=== PATIENT | female | born 1960 | race Caucasian/White ===

== ENCOUNTER 2016-09-12 09:49 | Day surgery (SDC) | payer OTHER, MEDICARE ==
[2016-09-08 13:26] VITALS: BMI 27.4
[~2016-09-12 09:49] MED LIST: LACTATED RINGERS 1,000 ML IV SCH
[2016-09-12 10:31] VITALS: RESP 16; TEMP 97.1
[2016-09-12] MEDS ORDERED: LIDOCAINE 1% 20 ML VIAL (10MG/ML) FOR IV START INTRADERMA ONE (10:35)
[2016-09-12] MEDS ORDERED: ONDANSETRON 4 MG/2 ML VIAL IVP STA (10:52)
[2016-09-12] MEDS ORDERED: DEXAMETHASONE SOD PHOSPHATE 10 MG/ML 1 ML VIAL IV ONE (10:52)
[2016-09-12] MEDS ORDERED: LIDOCAINE 1% INJ 10MG/ML (20 ML MDV) ONE (12:01)
[2016-09-12] MEDS ORDERED: PROPOFOL 10 MG/ML 20 ML VIAL IV ONE (12:01)
--- NOTE | 2016-09-12 12:19 | P.GSHP ---
History of Present Illness H&P Date: 09/12/16 Chief Complaint: GERD, screening Patient today for upper and lower endoscopy. Denies any bowel related complaints. Chronic reflux. She does have a history of IBS. Denies rectal bleeding or melena. No family history of colon cancer or polyps. Past Medical History Past Medical History: COPD, Fibromyalgia, GERD/Reflux, Osteoarthritis (OA) Additional Past Medical History / Comment(s): occasional edema, hx of hiatal hernia, IBS, ABDOMINAL BLOATING, CHRONIC SCIATICA, DDD History of Any Multi-Drug Resistant Organisms: None Reported Past Surgical History: Adenoidectomy, Section, Tonsillectomy Additional Past Surgical History / Comment(s): LAPROSCOPY FOR OVARIAN CYST, PREVIOUS EGD Past Anesthesia/Blood Transfusion Reactions: Postoperative Nausea & Vomiting ( PONV) Past Psychological History: Anxiety, Depression Smoking Status: Current every day smoker Past Alcohol Use History: Rare Additional Past Alcohol Use History / Comment(s): STATES SMOKES 1 AND 1/2 PPD SINCE AGE 13 (1972) Past Drug Use History: None Reported - Past Family History Mother Family Medical History: Cancer Additional Family Medical History / Comment(s): KIDNEY Father Family Medical History: Cancer Additional Family Medical History / Comment(s): HODGKINS Medications and Allergies Home Medications Medication Instructions Recorded Confirmed Type Albuterol Sulfate [Proventil Hfa] 2 puff INHALATION DIRECTED PRN 09/08/1610/24 History Cholecalciferol [Vitamin D3] 1,000 unit PO DAILY 09/08/16 09/12/16 History Citalopram Hydrobromide [CeleXA] 20 mg PO HS 09/08/16 09/12/16 History Fluticasone/Salmeterol [Advair 1 inhalation PO BID 09/08/16 09/12/16 History 250-50 Diskus] HYDROcodone/APAP 7.5-325MG [[place] 1 tab PO DIRECTED PRN 09/08/16 09/12/16 History 7.5-325] HYDROcodone/IBUPROFEN 7.5-200 1 tab PO Q6H PRN 09/08/16 09/12/16 History [Vicoprofen 7.5-200 mg] Lansoprazole 30 mg PO QAM 09/08/16 09/12/16 History Montelukast [Singulair] 10 mg PO HS 09/08/16 09/12/16 History Simvastatin [Zocor] 20 mg PO QAM 09/08/16 09/12/16 History Stool Softener 1 tab PO DAILY 09/08/16 09/12/16 History Triamcinolone Acetonide [Nasacort] 2 spr EA NOSTRIL DAILY 09/08/16 09/12/16 History Triamterene-Hctz 37.5-25Mg 1 cap PO DAILY 09/08/16 09/12/16 History [Dyazide 37.5-25 Capsule] Venlafaxine HCl [Effexor] 75 mg PO HS 09/08/16 09/12/16 History oxyCODONE HCL [oxyCODONE HCL ER] 40 mg PO Q12HR 09/08/16 09/12/16 History Allergies Allergy/AdvReac Type Severity Reaction Status Date / Time No Known Allergies Allergy Verified 09/08/16 13:12 Surgical - Exam Vital Signs Temp Pulse Resp BP Pulse Ox 97.1 F L 68 16 122/73 98 09/12/16 10:27 09/12/16 10:27 09/12/16 10:27 09/12/16 10:27 09/12/16 10:27 Physical exam: General: Well-developed, well-nourished HEENT: Normocephalic, sclerae nonicteric Abdomen: Nontender, nondistended Extremities: No edema Neuro: Alert and oriented Assessment and Plan (1) Colon cancer screening Narrative/Plan: Will proceed with colonoscopy and EGD. Status: Acute
[2016-09-12] MEDS ORDERED: IV FLUID CONTINUATION 1,000 ML IV ONE (12:24)
--- NOTE | 2016-09-12 12:38 | P.PCN ---
Date of Procedure: 09/12/16 Procedure(s) Performed: PREOPERATIVE DIAGNOSIS: GERD, screening POSTOPERATIVE DIAGNOSIS: Mild gastritis, small hiatal hernia, diverticulosis, 3 small rectal polyps PROCEDURE: 1. EGD with biopsy 2. Colonoscopy with snare polypectomy ANESTHESIA: MAC SURGEON: Jan Corea M.D. SPECIMENS: Antrum, rectal polyp ENDOSCOPIC PROCEDURE: The patient was on the endoscopy table in the left decubitus position. The Olympus gastroscope was inserted into the oropharynx and passed under direct visualization to the region of the third portion of the duodenum. From that point the scope was slowly withdrawn inspecting all surfaces carefully. There were no neoplastic inflammatory or polypoid lesions throughout the duodenum. The pylorus was widely patent. The stomach was carefully inspected. There was mild gastritis present. A biopsy of the antrum took place to rule out H. pylori. Retroflexion revealed a small sliding hiatal hernia. The esophagus was then carefully examined. There were no neoplastic inflammatory or polypoid lesions throughout the visualized esophagus. The patient was kept on the endoscopy table in the left decubitus position. The Olympus colonoscope was inserted into the anus and passed under direct visualization to the base of the cecum. The appendiceal orifice was visualized. From that point the scope was slowly withdrawn inspecting all surfaces carefully. There were no neoplastic inflammatory or polypoid lesions throughout the cecum, ascending, transverse, descending, and sigmoid colon. In the rectum there were 3 small polyps that were removed using the snare with cautery technique. Digital rectal examination was normal. There was fairly extensive left-sided diverticulosis present. Digital rectal examination was normal. The patient was taken to the recovery room in stable condition per anesthesia guidelines. RECOMMENDATIONS: Await results. Continue antiacid therapy.
[2016-09-12 13:39] VITALS: BP 106/57; PULSE 71
== END 2016-09-12 13:35 | disposition home or self-care (01) ==
LOC: ORWHC2ENDO 09:49
PROVIDERS: ATTEND Surgery
DX: K29.50 Unspecified chronic gastritis without bleeding (principal); K62.1 Rectal polyp; K44.9 Diaphragmatic hernia without obstruction or gangrene; K57.30 Diverticulosis of large intestine without perforation or abscess without bleeding; K21.9 Gastro-esophageal reflux disease without esophagitis; Z87.19 Personal history of other diseases of the digestive system; J44.9 Chronic obstructive pulmonary disease, unspecified; M79.7 Fibromyalgia; M19.90 Unspecified osteoarthritis, unspecified site; F41.9 Anxiety disorder, unspecified; F32.9 Major depressive disorder, single episode, unspecified; F17.200 Nicotine dependence, unspecified, uncomplicated; Z79.1 Long term (current) use of non-steroidal anti-inflammatories (NSAID); Z79.891 Long term (current) use of opiate analgesic; Z79.899 Other long term (current) drug therapy
CPT/HCPCS: 88305; 88342; 45385; 43239; J1100; J2405; J2001; J2704; 99153

== ENCOUNTER 2018-10-08 11:38 | Day surgery (SDC) | payer MEDICARE, OTHER ==
[2018-10-06 11:40] VITALS: BMI 29.9
[~2018-10-08 11:38] MED LIST changes: +DEXAMETHASONE SOD PHOSPHATE 10 MG/ML 1 ML VIAL IV ONE; +HYDROmorphone 0.5 MG/0.5 ML SYRINGE IVP PRN; +MIDAZOLAM (PF) 2 MG/2 ML VIAL IV PRN; +ONDANSETRON 4 MG/2 ML VIAL IVP ONE; +Pre Op ABX Message 1 EACH MISC MISCELLANE ONE; +SCOPOLAMINE 1.5MG/72HR PATCH TRANSDERM ONE
[2018-10-08 12:35] VITALS: TEMP 98
[2018-10-08] MEDS ORDERED: LACTATED RINGERS 1,000 ML IV ONE (12:41)
[2018-10-08] MEDS ORDERED: LIDOCAINE 1% 20 ML VIAL (10MG/ML) FOR IV START INTRADERMA ONE (12:42)
[2018-10-08] MEDS ORDERED: fentaNYL (PF) 50 MCG/ML 2 ML AMP ONE (14:06)
[2018-10-08] MEDS ORDERED: PROPOFOL 10 MG/ML 20 ML VIAL IV ONE (14:06)
[2018-10-08] MEDS ORDERED: MIDAZOLAM 2 MG/2 ML VIAL ONE (14:06)
[2018-10-08] MEDS ORDERED: LIDOCAINE 1% INJ 10MG/ML (20 ML MDV) ONE (14:06)
[2018-10-08] MEDS ORDERED: BUPIVACAINE-EPI 0.5%-1:200,000 10 ML VIAL SQ ONE ×2 (14:19→14:50)
[2018-10-08] MEDS ORDERED: LIDOCAINE 2% INJ 20 MG/ML SQ ONE (14:19)
[2018-10-08 15:01] VITALS: RESP 16
[2018-10-08 15:10] VITALS: BP 127/72; PULSE 72
--- NOTE | 2018-10-08 15:31 | P.OP ---
Date of Procedure: 10/08/18 Preoperative Diagnosis: Right carpal tunnel syndrome Postoperative Diagnosis: Right carpal tunnel syndrome Procedure(s) Performed: Right endoscopic carpal tunnel release Anesthesia: MAC, local Surgeon: Christiano Petty Estimated Blood Loss (ml): 1 Pathology: none sent Condition: stable Disposition: PACU Indications for Procedure: The patient is a 58-year-old female who was diagnosed with bilateral carpal tunnel syndrome. Treatment options were discussed in the office and she elected to proceed with surgical release, starting with the right side. Risks and benefits were discussed in the office and reviewed preoperatively. Questions were invited and answered. The patient expressed understanding and wished to proceed with surgery. The surgical site was confirmed and marked. Consent forms were signed. Description of Procedure: After informed consent was obtained, the patient was brought to the operative suite by the anesthesia team. Monitored anesthesia was administered uneventfully. A tourniquet was placed on the right arm. A time-out was performed which confirmed the patient, the operative side, site and the procedure to be performed. All team members expressed agreement. Using aseptic technique, local anesthetic was injected into the subcutaneous tissues around the planned incision. The right upper extremity was then prepped and draped in standard, sterile fashion. The limb was exsanguinated with an Esmarch and the tourniquet was inflated. A 1.5 cm transverse incision was marked just proximal to the wrist flexion crease, in line with the radial border of the ring finger. The skin was sharply incised and the subcutaneous tissues were spread. The palmaris longus tendon was identified and mobilized. The volar carpal fascia was identified and sharply incised. The patient had extremely thin skin and scant subcutaneous fat. A synovial elevator was used to release adhesions on the underside of the transverse carpal ligament. A dilator was used to sound and enlarge the carpal tunnel. The hamate hook was palpable ulnarly. The smaller size, side-specific guide and camera were inserted. The ligament was clearly visualized above. The endoscopic blade was inserted and the distal half of the ligament was sharply divided. Residual transverse fibers were released distally and then the proximal portion of the ligament was incised. Wide release of ligament was visually confirmed. The camera was removed. Under direct visualization with loupe magnification, the volar carpal fascia was released distally and proximally with scissors. The median nerve was flattened and encased in thickened perineural tissue. A limited neurolysis was performed to mobilize the nerve. The palmar cutaneous branch was running adjacent to the nerve, immediately below the incision, and was protected throughout the case. The tourniquet was released and good hemostasis was confirmed. The wound was thoroughly irrigated with normal saline and the incision was closed with interrupted 5-0 Nylon sutures. Additional local anesthetic (marcaine with epinephrine) was injected for postoperative pain control. A soft, sterile dressing was applied. All sponge and needle counts were correct at the end of the case. The patient tolerated the procedure well and was transferred to recovery in stable condition.
== END 2018-10-08 15:37 | disposition home or self-care (01) ==
LOC: OR 11:38
PROVIDERS: ATTEND Orthopaedic Surgery
DX: G56.03 Carpal tunnel syndrome, bilateral upper limbs (principal); E78.5 Hyperlipidemia, unspecified; H40.9 Unspecified glaucoma; K58.9 Irritable bowel syndrome, unspecified; F32.9 Major depressive disorder, single episode, unspecified; M79.7 Fibromyalgia; R53.82 Chronic fatigue, unspecified; K21.9 Gastro-esophageal reflux disease without esophagitis; J44.9 Chronic obstructive pulmonary disease, unspecified; F17.210 Nicotine dependence, cigarettes, uncomplicated; Z79.891 Long term (current) use of opiate analgesic; Z79.51 Long term (current) use of inhaled steroids; Z79.899 Other long term (current) drug therapy
CPT/HCPCS: 64721; J2001 ×2; J2250; J1100; J2405; J3010; J2704

== ENCOUNTER → 2021-05-03 | Outpatient (CLI) | payer MEDICARE ==
--- NOTE | 2021-05-05 21:52 | PE ---
EXAMINATION TYPE: PET CT fusion skull to thigh DATE OF EXAM: 05/03/2021 COMPARISON: NONE HISTORY: Lung nodules. Abnormal outside CT. TECHNIQUE: Following the intravenous administration of 9.86 mCi of F-18 FDG, whole body images are p erformed from the skull base to the midthigh. Images are reviewed on the computer in the coronal, ax ial, and sagittal planes. Reconstructed rotating images are created on independent workstation and r eviewed on the computer. A localization and attenuation correction CT is performed in conjunction w ith the PET scan. Blood glucose level equals 87. SCAN: Initial Scan FINDINGS: SKULL BASE AND NECK: Symmetric uptake and focal cords presumed related to product of phonation. No a dditional area of abnormal hypermetabolic uptake. CHEST, MEDIASTINUM, AND HILAR REGION: Mild to moderate underlying emphysematous change is present. Sc attered small nodules do not show abnormal hypermetabolic uptake. There is lingular nodular consolida tion at 2.6 x 1.1 cm axial image 103, this area is ametabolic favoring scarring or atelectasis. No ar eas of abnormal hypermetabolic uptake noted. ABDOMEN AND PELVIS: Normal excretion. No adrenal masses. No areas of abnormal hypermetabolic uptake. OSSEOUS STRUCTURES: No areas of abnormal hypermetabolic uptake OTHER CT: Mild calcified plaque right greater than left carotid bulbs. Multiple tiny gallstones in gallbladder. Scattered bilateral pelvic phleboliths. IMPRESSION: No suspicious hypermetabolic uptake in the lingular nodular consolidation. Symmetric mild uptake at level of vocal cords presumed artifactual without CT correlate and symmetry. No additional areas of suspicious hypermetabolic uptake to suggest malignancy. Continued annual low-dose lung scre ening CT.
== END | disposition home or self-care (01) ==
LOC: RADPETMAIN 17:05
PROVIDERS: ATTEND Family Medicine
DX: R91.8 Other nonspecific abnormal finding of lung field (principal)
CPT/HCPCS: 78815; A9552

== ENCOUNTER → 2023-10-30 | Outpatient (CLI) | payer MEDICARE ==
--- NOTE | 2023-11-01 02:29 | PE ---
EXAMINATION TYPE: PET CT fusion skull to thigh DATE OF EXAM: 10/30/2023 COMPARISON: Prior PET/CT May 03, 2021 HISTORY: Solitary pulmonary nodule TECHNIQUE: Following the intravenous administration of 7.27 mCi of F-18 FDG, whole body images are p erformed from the skull base to the midthigh. Images are reviewed on the computer in the coronal, ax ial, and sagittal planes. Reconstructed rotating images are created on independent workstation and r eviewed on the computer. A localization and attenuation correction CT is performed in conjunction w ith the PET scan. Blood glucose level equals 92 SCAN: Subsequent Scan FINDINGS: SKULL BASE AND NECK: No new area of abnormal hypermetabolic uptake. CHEST, MEDIASTINUM, AND HILAR REGION: Mild to moderate underlying emphysematous change is redemonstra el. Scattered small nodules do not show abnormal hypermetabolic uptake. For reference there is stabl e 4 mm anterior right upper lung nodule image 53 redemonstrated. Stable lingular chronic consolidatio n or scarring on axial image 101. There is new hypermetabolic enlarged subcarinal mass or lymph node worrisome for neoplasm measuring 2 .9 x 2.4 cm axial image 80, max SUV is 14.28s. ABDOMEN AND PELVIS: Normal excretion redemonstrated. No new hypermetabolic adrenal masses. No areas o f abnormal hypermetabolic uptake. OSSEOUS STRUCTURES: No areas of abnormal hypermetabolic uptake OTHER CT: Mild calcified plaque right greater than left carotid bulbs. Multiple tiny dependent gallstones in gallbladder. Scattered bilateral pelvic phleboliths. IMPRESSION: New enlarged hypermetabolic subcarinal lymph node worrisome for neoplasm. No metastatic d isease or hypermetabolic pulmonary nodules/masses identified.
--- NOTE | 2023-11-02 16:06 | P.GSHP ---
History of Present Illness H&P Date: 11/02/23 Chief Complaint: Mediastinal adenopathy Mrs Brownlee is a 63 year-old female with a 45 pack year smoking history who underwent cardiac gated CT for a family hx of CAD which revealed a subcarinal mass. The patient then underwent PET/CT which revealed an enlarged station 7 lymph node with FDG avidity of 14.28. The patient also has a history of COPD, GERD, OA, FM, hiatal hernia, IBS. She denies previous chest surgery. She has a chronic cough related to her smoking that is non productive. She denies fevers, chills, weight loss or hemoptysis. - Constitutional Constitutional: Reports as per HPI - EENT Ears, nose, mouth and throat: Reports as per HPI - Breasts Breasts: absent: as per HPI - Cardiovascular Cardiovascular: Reports as per HPI - Respiratory Respiratory: Reports as per HPI Past Medical History Past Medical History: COPD, Fibromyalgia, GERD/Reflux, Hyperlipidemia, Hypertension, Osteoarthritis (OA) Additional Past Medical History / Comment(s): VERNA CARPAL TUNNEL, occasional edema, hx of hiatal hernia, IBS, CHRONIC SCIATICA, DDD, ABD HERNIA History of Any Multi-Drug Resistant Organisms: None Reported Past Surgical History: Adenoidectomy, Section, Tonsillectomy Additional Past Surgical History / Comment(s): LAPROSCOPY FOR OVARIAN CYST, EGD Past Anesthesia/Blood Transfusion Reactions: Postoperative Nausea & Vomiting (PONV) Past Psychological History: Anxiety, Depression Past Alcohol Use History: Rare Additional Past Alcohol Use History / Comment(s): STATES SMOKES 1 PPD SINCE AGE 13 (1972) Past Drug Use History: Marijuana Additional Drug Use History / Comment(s): CBD OIL USE, INSTRUCTED TO HOLD 24 HRS PRIOR TO PROCEDURE - Past Family History Mother Family Medical History: Cancer Additional Family Medical History / Comment(s): KIDNEY Father Family Medical History: Cancer Additional Family Medical History / Comment(s): HODGKINS Medications and Allergies Home Medications Medication Instructions Recorded Confirmed Type Albuterol Sulfate [Proventil Hfa] 2 puff INHALATION DIRECTED PRN 09/08/16 10/06/18 History Cholecalciferol [Vitamin D3] 1,000 unit PO DAILY 09/08/16 10/06/18 History Citalopram Hydrobromide [CeleXA] 20 mg PO HS 09/08/16 10/06/18 History Fluticasone Propion/Salmeterol 1 inhalation PO BID 09/08/16 10/06/18 History [Advair 250-50 Diskus] HYDROcodone/IBUPROFEN 7.5-200 1 tab PO Q6H PRN 09/08/16 10/06/18 History [Vicoprofen 7.5-200 mg] Montelukast [Singulair] 10 mg PO HS 09/08/16 10/06/18 History Simvastatin [Zocor] 20 mg PO DAILY 09/08/16 10/06/18 History Triamterene-Hctz 37.5-25Mg 1 cap PO DAILY 09/08/16 10/06/18 History [Dyazide 37.5-25 Capsule] Esomeprazole Magnesium [NexIUM] 40 mg PO DAILY 10/06/18 10/06/18 History Morphine Sulfate [Morphine Sulfate 30 mg PO Q12H 10/06/18 10/06/18 History ER] Venlafaxine HCl [Effexor XR] 37.5 mg PO DAILY 10/06/18 10/06/18 History Allergies Allergy/AdvReac Type Severity Reaction Status Date / Time No Known Allergies Allergy Verified 10/06/18 11:30 Surgical - Exam - General well developed, well nourished - Eyes PERRL - Neck no lymphadectomy lymphadenopathy: absent - Cardiovascular Rhythm: regular Heart Sounds: normal: S1, S2 - Abdomen Abdomen: soft, non tender Results - Imaging CT scan - chest: report reviewed, image reviewed Assessment and Plan Assessment: 63 year-old F with newly discovered enlarged Station 7 lymph node that is FDG avid on PET/CT with significant smoking history. This is certainly concerning for carcinoma. Plan: We will refer her to Dr. Vera for EBUS/FNA. Time with Patient: Greater than 30
== END | disposition home or self-care (01) ==
LOC: RADPETMAIN 09:05
PROVIDERS: ATTEND Family Medicine
DX: R91.1 Solitary pulmonary nodule (principal)
CPT/HCPCS: 78815; A9552

== ENCOUNTER 2023-11-09 06:48 | Day surgery (SDC) | payer MEDICARE ==
[2023-11-05 10:34] VITALS: BMI 26.2
[~2023-11-09 06:48] MED LIST changes: -DEXAMETHASONE SOD PHOSPHATE 10 MG/ML 1 ML VIAL IV ONE; -HYDROmorphone 0.5 MG/0.5 ML SYRINGE IVP PRN; +LIDOCAINE 1% (10MG/ML) FOR IV START INTRADERMA PRN; -MIDAZOLAM (PF) 2 MG/2 ML VIAL IV PRN; -ONDANSETRON 4 MG/2 ML VIAL IVP ONE; -Pre Op ABX Message 1 EACH MISC MISCELLANE ONE; -SCOPOLAMINE 1.5MG/72HR PATCH TRANSDERM ONE
[2023-11-09] MEDS ORDERED: ONDANSETRON 4 MG/2 ML VIAL ONE (07:17)
[2023-11-09] MEDS: LACTATED RINGERS 1,000 ML IV SCH (07:20)
[2023-11-09] MEDS: DEXAMETHASONE SOD PHOSPHATE 4 MG/ML 1 ML VIAL IVP ONE (07:28)
[2023-11-09] MEDS: ONDANSETRON 4 MG/2 ML VIAL IVP ONE (07:28)
[2023-11-09] MEDS ORDERED: PROPOFOL 10 MG/ML 20 ML VIAL IV ONE (07:40)
[2023-11-09] MEDS ORDERED: SUCCINYLCHOLINE CHLORIDE 200 MG/10 ML VIAL IV ONE (07:40)
[2023-11-09] MEDS ORDERED: fentaNYL (PF) 50 MCG/ML 2 ML AMP ONE (07:40)
[2023-11-09] MEDS ORDERED: MIDAZOLAM 2 MG/2 ML VIAL ONE (07:40)
[2023-11-09] MEDS ORDERED: DEXAMETHASONE SOD PHOSPHATE 4 MG/ML 1 ML VIAL ONE (07:40)
[2023-11-09] MEDS ORDERED: LIDOCAINE 1% INJ 10MG/ML (20 ML MDV) ONE (07:40)
[2023-11-09 07:49] LABS: African American GFR (CKD) >90 (>60 ml/min/1.73 sqM); Anion Gap 6 mmol/L; Blood Urea Nitrogen 23 mg/dL (7-17); Calcium 9.3 mg/dL (8.4-10.2); Carbon Dioxide 28 mmol/L (22-30); Chloride 104 mmol/L (98-107); Glucose 115 mg/dL (74-99); Non-African American GFR(CKD) 80 (>60 ml/min/1.73 sqM); Sodium 138 mmol/L (137-145)
--- NOTE | 2023-11-09 08:29 | P.PCN ---
Date of Procedure: 11/09/23 Operative Findings: Preoperative Diagnosis: mediastinal lymphadenopathy Postoperative Diagnosis: mediastinal lymphadenopathy Procedure(s) Performed: flexible bronchoscopy, airway inspection bronchoalveolar lavage of the left upper lobe endoscopic ultrasound (EBUS) transbronchial needle aspirate of station 7 lymph nodes Surgeon: Praneeth Vera Estimated Blood Loss (ml): 0 Pathology: other Condition: stable Disposition: same day Operative Findings: After obtaining the consent the patient was taken to the OR suite he was intubated and put on MV by anesthesia then the scope was advanced to the ET tube until the Trachea was seen and it was normal and then the linda appears normal then the scope advanced to the left main and RICHARD LB1-LB3 were seen and no endobronchial lesions were seen then the scope advanced to the lingula and the LB4 and LB5 were seen and no endobronchial lesions were seen the scope retracted and advanced to the left lower lobes LB6 to LB12 were seen one by one and no endobronchial lesions, then the scope was retracted back to the linda and advanced to the Right main and RUL RB1 and RB2 and RB3 were seen one by one and no endobronchial lesions were seen the scope then retracted and advanced to the BI and RML RB4 and RB5 were seen and no endobronchial lesions were seen then it was retracted and advanced to the RLL RB6 to RB12 were seen one by one and no endobronchial lesions. Secretions identified throughout the patient's airway that was suctioned out without any major difficulties. Following a detailed airway inspection, the bronchoscope was wedged into the apical segment of the left upper lobe endobronchial lavage was done. A total of 60 cc of fluid was infused and 16 cc of nonbloody saline was aspirated from the left upper lobe without any complications. Following that, the flexor bronchoscope was removed and the endobronchial ultrasound was inserted. Then EBUS was used and the lymph nodes were examined. Direct measurement of the mediastinal lymph nodes revealed a 2.1x 3 cm subcarinal station 7 lymph node was identified. In fact there was more than a single lymph node with dominant lymph node was around 3 cm in size and is largest dimension and there were other smaller lymph nodes matted to the dominant lymph node. The rest of the mediastinal stations were essentially within normal limits. Using a 22-gauge vizishot needle, transbronchial needle aspirate of the subcarinal lymph node was done with a total of 5 passes were taken. 2 additional passes were taken and sent in into a lymphoma solution. The endobronchial ultrasound was removed. Flexible bronchoscope was inserted and therapeutic airway suctioning was done. The procedure was terminated and the bronchoscope was removed. The patient was extubated. The patient was send to the floor in stable condition
[2023-11-09 09:07] VITALS: RESP 20; TEMP 97.2
[2023-11-09 09:49] VITALS: BP 118/74; PULSE 81
[2023-11-09 19:27] LABS: Appearance,BF Blood Tinged (Clear); RBC, Body Fluid 1400 /UL (0-2000)
[2023-11-10 09:17] LABS: Nucleated Cells, Body Fluid 1683 /UL
== END 2023-11-09 09:40 | disposition home or self-care (01) ==
LOC: ORWHC2ENDO 06:48
PROVIDERS: ATTEND Internal Medicine Critical Care Medicine
DX: C96.9 Malignant neoplasm of lymphoid, hematopoietic and related tissue, unspecified (principal); E78.5 Hyperlipidemia, unspecified; J44.9 Chronic obstructive pulmonary disease, unspecified; F17.210 Nicotine dependence, cigarettes, uncomplicated; K21.9 Gastro-esophageal reflux disease without esophagitis; M79.7 Fibromyalgia; I10 Essential (primary) hypertension; F41.8 Other specified anxiety disorders; M19.90 Unspecified osteoarthritis, unspecified site; Z20.822 Contact with and (suspected) exposure to COVID-19; Z79.899 Other long term (current) drug therapy; Z79.51 Long term (current) use of inhaled steroids; Z79.891 Long term (current) use of opiate analgesic
CPT/HCPCS: 87798 ×3; 87496; 87498; 87529; 88305; 80048; 89050; 88342; 87502; 87634; 88341; 87070; 87205; 87116; 87102; 87206; 87635; 31624; 31652; J2250; J0330; J1100; J2405; J2001; J3010; J2704

== ENCOUNTER → 2023-11-23 | Outpatient (CLI) | payer MEDICARE ==
--- NOTE | 2023-11-24 22:11 | MR ---
EXAMINATION TYPE: MR brain wo/w con DATE OF EXAM: 11/23/2023 COMPARISON: None HISTORY: Lung CA, mets CONTRAST: Performed utilizing 5.5 mL intravenous Gadavist gadolinium contrast. TECHNIQUE: Multiplanar, multiecho imaging on a 3.0 [place] magnet is performed through the brain. Stud y is performed within 24 hours of arrival to the hospital. The craniovertebral junction is normal. The pituitary is normal. Cerebellar pontine angles appear n ormal. Internal auditory canals as visualized appear normal Diffusion-weighted imaging is performed. No abnormal hyperintensity is present to suggest an acute i ntracranial infarct or acute ischemic change. A couple of scattered punctate deep white matter hyperintensities on T2 and inversion recovery weight ed sequences. Findings are nonspecific but can be related to microvascular ischemic change. Ventricles and sulci are appropriate for the patient age. Following contrast no suspicious enhancement is evident. IMPRESSION: 1. Scattered deep white matter changes which are nonspecific but can be related to microvascular isch emic change. 2. No suspicious enhancement or other changes to suggest metastatic disease.
== END | disposition home or self-care (01) ==
LOC: RADMRIMAIN 13:32
PROVIDERS: ATTEND Internal Medicine Hematology & Oncology
DX: C34.90 Malignant neoplasm of unspecified part of unspecified bronchus or lung (principal); R90.82 White matter disease, unspecified
CPT/HCPCS: 70553; A9585

== ENCOUNTER → 2024-01-12 | Outpatient (CLI) | payer MEDICARE ==
[2024-01-12 15:35] LABS: ALT 39 U/L (8-44); AST 28 U/L (13-35); Albumin 4.2 g/dL (3.8-4.9); Albumin/Globulin Ratio 1.83 Ratio (1.60-3.17); Alkaline Phosphatase 81 U/L (41-126); BUN/Creat Ratio 22.33 Ratio (12.00-20.00); Blood Urea Nitrogen 20.1 mg/dL (9.0-27.0); Calcium 9.6 mg/dL (8.7-10.3); Carbon Dioxide 31.4 mmol/L (21.6-31.8); Chloride 98 mmol/L (96-109); Chol/HDL Ratio 2.53 Ratio; Globulin 2.3 g/dL (1.6-3.3); Glucose 114 mg/dL (70-110); LDL Cholesterol,Calculated 111.4 mg/dL (0.0-131.0); Potassium 3.5 mmol/L (3.5-5.5); Sodium 140 mmol/L (135-145); Total Bilirubin 0.3 mg/dL (0.3-1.2); Total Protein 6.5 g/dL (6.2-8.2); VLDL Calculation 10.84 mg/dL (5.00-40.00)
== END | disposition home or self-care (01) ==
LOC: LABWHC1 08:54
PROVIDERS: ATTEND Internal Medicine Clinical Cardiac Electrophysiology
DX: I25.10 Atherosclerotic heart disease of native coronary artery without angina pectoris (principal); E78.5 Hyperlipidemia, unspecified
CPT/HCPCS: 36415; 80053; 80061; 84443

== ENCOUNTER → 2024-02-12 | Outpatient (CLI) | payer MEDICARE ==
[2024-02-12 14:57] LABS: African American GFR (CKD) >90 (>60 ml/min/1.73 sqM); Blood Urea Nitrogen 21 mg/dL (7-17); Non-African American GFR(CKD) 86 (>60 ml/min/1.73 sqM)
--- NOTE | 2024-02-12 21:10 | CT ---
EXAMINATION TYPE: CT chest w con CT DLP: 181.6 mGycm, Automated exposure control for dose reduction was used. DATE OF EXAM: 02/12/2024 3:17 PM COMPARISON: 10/30/2023 CLINICAL INDICATION:Female, 63 years old with history of C34.90 Lung cancer; PHH, h/o lung CA TECHNIQUE: Multiple axial images were obtained through the chest. Sagittal and coronal reformats were created for review. Contrast used:100 mL of Isovue 300 with IV Contrast (None if empty) Oral contrast used: (None if empty) FINDINGS: LUNGS/ PLEURA: Stable right upper lung pulmonary nodule series 3 image 80 parenchymal abnormality wendi ng the right lateral aspect of right upper lung image 14 stable right lower lung medial 7 cm nodule s eries 3 image 32. Consolidation changes along the left major fissure in the lower lobe is an favored represent atelectasis. AIRWAY: Patent and unremarkable. HEART: Size within normal limits. MEDIASTINUM: Subcarinal lymph node on today's exam measures 17 x 15 mm, previously 29 x 24 mm. VASCULATURE: No aortic aneurysm. MUSCULOSKELETAL: No acute osseous abnormalities SOFT TISSUES/LYMPH NODES: Unremarkable. LOWER NECK: No significant findings. UPPER ABDOMEN: Simple appearing left renal cyst. IMPRESSION: 1. Interval decrease in size of subcarinal lymph node. No other greater than 1.0 cm lymph nodes iden tified. 2. Atelectasis along the left major fissure, attention on follow-up imaging. 3. Stable pulmonary nodules and subcentimeter nodules.
== END | disposition home or self-care (01) ==
LOC: RADCTMAIN 14:02
PROVIDERS: ATTEND Internal Medicine Hematology & Oncology
DX: C34.90 Malignant neoplasm of unspecified part of unspecified bronchus or lung (principal); R91.8 Other nonspecific abnormal finding of lung field; K58.9 Irritable bowel syndrome, unspecified; M79.7 Fibromyalgia; J44.9 Chronic obstructive pulmonary disease, unspecified; Z71.3 Dietary counseling and surveillance; Z87.59 Personal history of other complications of pregnancy, childbirth and the puerperium
CPT/HCPCS: 82565; 84520; 71260; 36415; Q9967

== ENCOUNTER → 2024-05-26 | Outpatient (CLI) | payer MEDICARE ==
--- NOTE | 2024-05-29 15:20 | PE ---
EXAMINATION TYPE: PET CT fusion skull to thigh DATE OF EXAM: 05/26/2024 CLINICAL INDICATION:Female, 64 years old with history of C34.80 Lung Ca; TECHNIQUE: Following the intravenous administration of 12.2 mCi of F-18 FDG, whole body images are performed from the skull base to the midthigh. Images are reviewed on the computer in the coronal, a xial, and sagittal planes. Reconstructed rotating images are created on independent workstation and reviewed on the computer. A non-contrast CT is performed in conjunction with the PET scan. Glucose level 103 mg/dL CT DLP: 271 mGycm, Automated exposure control for dose reduction was used. COMPARISON: CT 02/12/2024, PET/CT 10/30/2023, MRI: None FINDINGS: Mediastinal SUV mean is 2.1. Hepatic parenchyma SUV mean is 2.6. SKULL BASE AND NECK: No suspicious radiotracer activity. CHEST, MEDIASTINUM, AND HILAR REGION: * Subcarinal lymph node max SUV 3.3, previously 14.3. Now measuring smaller at 13 mm in short axis p reviously 15 mm on 02/12/2024. * No new lesions identified. * Scattered pulmonary nodules which are below the sensitivity for PET/CT. ABDOMEN AND PELVIS: No suspicious radiotracer activity. MUSCULOSKELETAL STRUCTURES: No suspicious radiotracer activity. OTHER CT: Mild calcified plaque right greater than left carotid bulbs. Multiple tiny gallstones in ga llbladder. Scattered bilateral pelvic phleboliths. Ventral wall fat-containing hernia. IMPRESSION: Positive response of therapy with decreased size an FDG activity of of subcarinal lymph node. No new lesions. [facility], , 05/29/2024 3:17 PM
== END | disposition home or self-care (01) ==
LOC: RADPETMAIN 10:59
PROVIDERS: ATTEND Internal Medicine Hematology & Oncology
CPT/HCPCS: 78815

== ENCOUNTER 2024-08-22 12:44 | Emergency (ER) | payer MEDICARE ==
--- NOTE | 2024-08-22 13:40 | ED ---
General Adult HPI - General Source: patient, family Mode of arrival: wheelchair Limitations: no limitations <Basilio Man - Last Filed: 08/23/24 07:32> <Ankur Cuenca - Last Filed: 08/23/24 20:26> - General Chief complaint: Arrhythmia/Palpitations Stated complaint: SOB Time Seen by Provider: 08/22/24 13:29 - History of Present Illness Initial comments: Dictation was produced using [employer] dictation software. please excuse any grammatical, word or spelling errors. Chief Complaint: 64-year-old female presents with tachycardia and hypotension History of Present Illness: Patient 64-year-old female she had most of her recent care done at [facility]. Patient states she is here today because she had home visiting nurse who checked her vitals and she was found to be tachycardic. She was told to come to the emergency department. Patient states her recent history is complicated by infected gallbladder, biloma and biliary obstructions. Patient currently has biliary stents along with percutaneous drain. She was told she has liver abscesses. She has a left upper extremity PICC line currently on antibiotics. Patient states that she feels lousy. States that her symptoms include fatigue, shortness of breath with exertion. She denies any abdominal pain. Denies any fever or constitutional symptoms. The ROS documented in this emergency department record has been reviewed and confirmed by me. Those systems with pertinent positive or negative responses have been documented in the HPI. All other systems are other negative and/or noncontributory. (Basilio Man) - Related Data Home Medications Medication Instructions Recorded Confirmed Albuterol Sulfate [Proventil Hfa] 2 puff INHALATION RT-QID PRN 09/08/16 08/22/24 Montelukast [Singulair] 10 mg PO HS 09/08/16 08/22/24 Triamterene-Hctz 37.5-25Mg 1 cap PO DAILY 09/08/16 08/22/24 [Dyazide 37.5-25 Capsule] Morphine Sulfate [Morphine Sulfate 30 mg PO Q8H 10/06/18 08/22/24 ER] Cetirizine HCl [Zyrtec] 10 mg PO DAILY 11/05/23 08/22/24 DULoxetine HCL [Cymbalta] 60 mg PO HS 11/05/23 08/22/24 HYDROcodone/APAP 7.5-325MG [[place] 1 tab PO Q6H PRN 11/05/23 08/22/24 7.5-325] Calcium 600mg W/Vitamin D 1 tab PO DAILY 08/22/24 08/22/24 Fluticasone Propion/Salmeterol 1 puff INHALATION RT-BID 08/22/24 08/22/24 [[place]ela 500-50 Inhub] Lansoprazole [Prevacid] 30 mg PO BID 08/22/24 08/22/24 Ondansetron Odt [Zofran Odt] 4 - 8 mg PO Q6H PRN 08/22/24 08/22/24 Piperacillin-Tazobactam [Zosyn] 4.5 gm IVPB Q6HR 08/22/24 08/22/24 Rosuvastatin Calcium [Crestor] 40 mg PO HS 08/22/24 08/22/24 Vitamin B Complex W/Vitamin C 1 tab PO DAILY 08/22/24 08/22/24 buPROPion HCL [Wellbutrin XL] 150 mg PO DAILY 08/22/24 08/22/24 ursodioL [Ursodiol] 300 mg PO BID 08/22/24 08/22/24 Allergies Allergy/AdvReac Type Severity Reaction Status Date / Time No Known Allergies Allergy Verified 08/22/24 15:06 Review of Systems ROS Other: All systems not noted in ROS Statement are negative. <Basilio Man - Last Filed: 08/23/24 07:32> ROS Other: All systems not noted in ROS Statement are negative. <Ankur Cuenca - Last Filed: 08/23/24 20:26> ROS Statement: Those systems with pertinent positive or pertinent negative responses have been documented in the HPI. 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 Vera is aware. Pt states she has been referred to Dr. Bolton and is unable to get in to see him until December2023.VERNA CARPAL TUNNEL, occasional edema, hx of hiatal hernia, IBS, CHRONIC SCIATICA, DDD, ABD HERNIA, Fibromyalsia, arthritis, Costochondritis, occasional edema to calves of legs. History of Any Multi-Drug Resistant Organisms: None Reported Past Surgical History: Adenoidectomy, Section, Tonsillectomy Additional Past Surgical History / Comment(s): LAPROSCOPY FOR OVARIAN CYST, EGD, bilat carpal tunnel surgery. Past Anesthesia/Blood Transfusion Reactions: Postoperative Nausea & Vomiting (PONV) Past Psychological History: Anxiety, Depression Smoking Status: Former smoker Past Alcohol Use History: None Reported Past Drug Use History: None Reported - Past Family History Mother Family Medical History: Cancer Additional Family Medical History / Comment(s): KIDNEY Father Family Medical History: Cancer Additional Family Medical History / Comment(s): HODGKINS <Basilio Man - Last Filed: 08/23/24 07:32> General Exam Limitations: no limitations <Basilio Man - Last Filed: 08/23/24 07:32> - General Exam Comments Initial Comments: PHYSICAL EXAM: General Impression: Alert and oriented x3, malaised HEENT: Normocephalic atraumatic, extra-ocular movements intact, pupils equal and reactive to light bilaterally, dry mucous membranes Cardiovascular: Heart regular rate and rhythm Chest: Able to complete full sentences, no retractions, no tachypnea Abdomen: abdomen soft, non-tender, non-distended, no organomegaly Musculoskeletal: Pulses present and equal in all extremities, no peripheral edema Motor: no focal deficits noted Neurological: CN II-XII grossly intact, no focal motor or sensory deficits noted Skin: Intact with no visualized rashes Psych: Normal affect and mood (Basilio Man) Course <Ankur Cuenca - Last Filed: 08/23/24 20:26> Vital Signs 08/22/24 08/22/24 08/22/24 13:17 13:32 14:35 Temperature 97.5 F L Pulse Rate 154 H 154 H 135 H Respiratory 20 20 22 Rate Blood Pressure 68/53 79/67 89/72 O2 Sat by Pulse 98 96 Oximetry 08/22/24 08/22/24 08/22/24 16:29 18:33 22:00 Temperature 97.2 F L Pulse Rate 131 H 80 76 Respiratory 18 18 18 Rate Blood Pressure 98/73 95/65 100/68 O2 Sat by Pulse 96 97 98 Oximetry 08/22/24 08/23/24 08/23/24 23:51 02:00 06:18 Temperature 98.1 F Pulse Rate 67 74 77 Respiratory 17 16 Rate Blood Pressure 101/66 110/63 O2 Sat by Pulse 98 95 Oximetry 08/23/24 08/23/24 08/23/24 09:30 13:26 19:07 Temperature Pulse Rate 77 76 74 Respiratory 16 20 20 Rate Blood Pressure 103/61 121/71 124/84 O2 Sat by Pulse 92 L 97 97 Oximetry - Reevaluation(s) Reevaluation #1: 08/22/24 18:24 Patient accepted at [facility], accepting physician Dr. Aparicio. (Ankur Cuenca) EKG Findings - EKG Comments: EKG Findings:: My EKG interpretation: Ventricular rate 155, sinus tachycardia versus SVT?, QRS 146, QTc 375. No IN prolongation, no QTC prolongation, no ST or T-wave changes noted. Overall, this EKG is unremarkable <Basilio Man - Last Filed: 08/23/24 07:32> Medical Decision Making - Lab Data Result diagrams: 08/22/24 13:53 08/22/24 13:53 <Basilio Man - Last Filed: 08/23/24 07:32> - Lab Data Result diagrams: 08/23/24 09:32 08/23/24 09:32 <Ankur Cuenca - Last Filed: 08/23/24 20:26> - Medical Decision Making Was pt. sent in by a medical professional or institution (, PA, MACHINE MAINTENANCE REPAIRER, urgent care, hospital, or assisted...) When possible be specific @ -No Did you speak to anyone other than the patient for history (EMS, parent, family, police, friend...)? What history was obtained from this source @ -No Did you review nursing and triage notes (agree or disagree)? Why? @ -I reviewed and agree with nursing and triage notes Were old charts reviewed (outside hosp., previous admission, EMS record, old EKG, old radiological studies, urgent care reports/EKG's, assisted records)? Report findings @ -No old charts were reviewed Differential Diagnosis (chest pain, altered mental status, abdominal pain women, abdominal pain men, vaginal bleeding, musculoskeletal, weakness, fever, dyspnea, syncope, headache, dizziness, GI bleed, back pain, seizure, CVA, palpatations, mental health)? @ -Differential Dizziness: Benign paroxysmal positional Vertigo, Meniere's disease, otitis media, acoustic neuroma, vertebrobasilar insufficiency, cerebellar stroke, encephalitis, h ypovolemic, arrhythmia, coronary artery syndrome, anemia, this is not meant to be an all-inclusive list EKG interpreted by me (3pts min.). @ -See above X-rays interpreted by me (1pt min.). @ -Chest x-ray shows pneumonia CT interpreted by me (1pt min.). @ -CT angiography of the chest shows no pulmonary embolism. She does appear to be scattered new opacities throughout the lungs consistent with atypical pneumonia. Also large hypoattenuating lesion in the liver U/S interpreted by me (1pt. min.). @ -None done What testing was considered but not performed or refused? (CT, X-rays, U/S, labs)? Why? @ -None What meds were considered but not given or refused? Why? @ -None Was smoking cessation discussed for >3mins.? @ -No Were there social determinants of health that impacted care today? How? (Homelessness, low income, unemployed, alcoholism, drug addiction, transportation, low edu. Level, literacy, decrease access to med. care, detention, rehab)? @ -No Was there de-escalation of care discussed even if they declined (Discuss DNR or withdrawal of care, Hospice)? DNR status @ -No What co-morbidities impacted this encounter? (DM, HTN, Smoking, COPD, CAD, Cancer, CVA, ARF, Chemo, Hep., AIDS, mental health diagnosis, sleep apnea, morbid obesity)? @ -Lung cancer Was patient admitted / discharged? Hospital course, mention meds given and route, prescriptions, significant lab abnormalities, going to OR and other pertinent info. @ -64-year-old female with extensive recent history of gallbladder and biliary surgery complicated by biloma and infection presents to the ER for chief compl aint of abnormal vital signs after being evaluated by home visiting nurse. She was found to have elevated heart rate and low blood pressure. Patient also states she is dyspneic on exertion. Vital signs upon arrival shows temperature 97.5. Heart rate of 154. Initial blood pressure of 68/53. Patient given large boluses of IV fluids with improvement of vital signs. Heart rate improved into the 130s still still tachycardic. Blood pressure improved to 89/72. Most recent blood pressure at 4:32 PM is 98/73. Laboratory evaluation obtained leukocytosis 21.4, coag panel is unremarkable. D-dimer is 2.08. Metabolic panel shows hyponatremia 127. Troponin of 0.091. Patient states that she feels improved with IV fluids. Given that patient recently had [facility] will call to attempt transfer. Patient given her dose of Zosyn. Patient accepted at 1820. Accepting physician is Alessandra. Patient boarding in our emergency department pending bed availability. Did you discuss the management of the patient with other professionals (professionals i.e. , PA, MACHINE MAINTENANCE REPAIRER, lab, RT, psych nurse, social work specialist, labor arbitrator hearing office, teacher, v/stol landing signal officer, case work aide)? Give summary @ -No Was critical care preformed (if so, how long)? @ -No Undiagnosed new problem with uncertain prognosis? @ -No Drug Therapy requiring intensive monitoring for toxicity (Heparin, Nitro, Insulin, Cardizem)? @ -No Were any procedures done? @ -No Diagnosis/symptom? Acute, or Chronic, or Acute on Chronic? Uncomplicated (without systemic symptoms) or Complicated (systemic symptoms)? @ -Pneumonia, hyponatremia, tachycardia Side effects of treatment? @ -No Exacerbation, Progression, or Severe Exacerbation? @ -No Poses a threat to life or bodily function? How? (Chest pain, USA, DC, pneumonia, PE, COPD, DKA, ARF, appy, cholecystitis, CVA, Diverticulitis, Homicidal, Suicidal, threat to staff... and all critical care pts) @ -yes (Basilio Man) - Lab Data Lab Results 08/22/24 08/22/24 08/22/24 Range/Units 13:53 13:53 13:53 WBC 21.4 H (3.8-10.6) k/uL RBC 3.98 (3.80-5.40) m/uL Hgb 11.7 (11.4-16.0) gm/dL Hct 35.2 (34.0-46.0) % MCV 88.5 (80.0-100.0) fL MCH 29.4 (25.0-35.0) pg MCHC 33.2 (31.0-37.0) g/dL RDW 16.8 H (11.5-15.5) % Plt Count 153 (150-450) k/uL MPV 7.7 Neutrophils % 87 % Lymphocytes % 6 % Monocytes % 4 % Eosinophils % 1 % Basophils % 0 % Neutrophils # 18.7 H (1.3-7.7) k/uL Lymphocytes # 1.3 (1.0-4.8) k/uL Monocytes # 0.9 (0-1.0) k/uL Eosinophils # 0.1 (0-0.7) k/uL Basophils # 0.0 (0-0.2) k/uL Hypochromasia Anisocytosis Slight PT 13.2 H (10.0-12.5) sec INR 1.2 H (<1.2) APTT 24.8 (22.0-30.0) sec D-Dimer 2.08 H (<0.60) mg/L FEU Sodium 127 L (137-145) mmol/L Potassium 3.7 (3.5-5.1) mmol/L Chloride 89 L (98-107) mmol/L Carbon Dioxide 27 (22-30) mmol/L Anion Gap 11 mmol/L BUN 11 (7-17) mg/dL Creatinine 0.64 (0.52-1.04) mg/dL Est GFR (CKD-EPI)AfAm >90 (>60 ml/min/1.73 sqM) Est GFR (CKD-EPI)NonAf >90 (>60 ml/min/1.73 sqM) Glucose 93 (74-99) mg/dL Plasma Lactic Acid Sergio (0.7-2.0) mmol/L Calcium 8.4 (8.4-10.2) mg/dL Magnesium 1.7 (1.6-2.3) mg/dL Total Bilirubin 0.4 (0.2-1.3) mg/dL AST 23 (14-36) U/L ALT 10 (4-34) U/L Alkaline Phosphatase 166 H (38-126) U/L Troponin I (0.000-0.034) ng/mL Total Protein 5.6 L (6.3-8.2) g/dL Albumin 2.6 L (3.5-5.0) g/dL 08/22/24 08/22/24 08/22/24 Range/Units 13:53 13:53 19:03 WBC (3.8-10.6) k/uL RBC (3.80-5.40) m/uL Hgb (11.4-16.0) gm/dL Hct (34.0-46.0) % MCV (80.0-100.0) fL MCH (25.0-35.0) pg MCHC (31.0-37.0) g/dL RDW (11.5-15.5) % Plt Count (150-450) k/uL MPV Neutrophils % % Lymphocytes % % Monocytes % % Eosinophils % % Basophils % % Neutrophils # (1.3-7.7) k/uL Lymphocytes # (1.0-4.8) k/uL Monocytes # (0-1.0) k/uL Eosinophils # (0-0.7) k/uL Basophils # (0-0.2) k/uL Hypochromasia Anisocytosis PT (10.0-12.5) sec INR (<1.2) APTT (22.0-30.0) sec D-Dimer (<0.60) mg/L FEU Sodium (137-145) mmol/L Potassium (3.5-5.1) mmol/L Chloride (98-107) mmol/L Carbon Dioxide (22-30) mmol/L Anion Gap mmol/L BUN (7-17) mg/dL Creatinine (0.52-1.04) mg/dL Est GFR (CKD-EPI)AfAm (>60 ml/min/1.73 sqM) Est GFR (CKD-EPI)NonAf (>60 ml/min/1.73 sqM) Glucose (74-99) mg/dL Plasma Lactic Acid Sergio 1.3 (0.7-2.0) mmol/L Calcium (8.4-10.2) mg/dL Magnesium (1.6-2.3) mg/dL Total Bilirubin (0.2-1.3) mg/dL AST (14-36) U/L ALT (4-34) U/L Alkaline Phosphatase (38-126) U/L Troponin I 0.091 H* 0.080 H* (0.000-0.034) ng/mL Total Protein (6.3-8.2) g/dL Albumin (3.5-5.0) g/dL 08/23/24 08/23/24 Range/Units 09:32 09:32 WBC 15.1 H (3.8-10.6) k/uL RBC 3.57 L (3.80-5.40) m/uL Hgb 10.4 L (11.4-16.0) gm/dL Hct 31.7 L (34.0-46.0) % MCV 88.9 (80.0-100.0) fL MCH 29.1 (25.0-35.0) pg MCHC 32.7 (31.0-37.0) g/dL RDW 17.0 H (11.5-15.5) % Plt Count 141 L (150-450) k/uL MPV 7.4 Neutrophils % 86 % Lymphocytes % 7 % Monocytes % 4 % Eosinophils % 1 % Basophils % 0 % Neutrophils # 13.0 H (1.3-7.7) k/uL Lymphocytes # 1.1 (1.0-4.8) k/uL Monocytes # 0.7 (0-1.0) k/uL Eosinophils # 0.2 (0-0.7) k/uL Basophils # 0.0 (0-0.2) k/uL Hypochromasia Slight Anisocytosis Slight PT (10.0-12.5) sec INR (<1.2) APTT (22.0-30.0) sec D-Dimer (<0.60) mg/L FEU Sodium 131 L (137-145) mmol/L Potassium 3.3 L (3.5-5.1) mmol/L Chloride 95 L (98-107) mmol/L Carbon Dioxide 31 H (22-30) mmol/L Anion Gap 5 mmol/L BUN 10 (7-17) mg/dL Creatinine 0.59 (0.52-1.04) mg/dL Est GFR (CKD-EPI)AfAm >90 (>60 ml/min/1.73 sqM) Est GFR (CKD-EPI)NonAf >90 (>60 ml/min/1.73 sqM) Glucose 104 H (74-99) mg/dL Plasma Lactic Acid Sergio (0.7-2.0) mmol/L Calcium 7.9 L (8.4-10.2) mg/dL Magnesium (1.6-2.3) mg/dL Total Bilirubin (0.2-1.3) mg/dL AST (14-36) U/L ALT (4-34) U/L Alkaline Phosphatase (38-126) U/L Troponin I (0.000-0.034) ng/mL Total Protein (6.3-8.2) g/dL Albumin (3.5-5.0) g/dL Disposition <Basilio Man - Last Filed: 08/23/24 07:32> - Out of Hospital Transfer - Req. Specs Out of Hospital Transfer - Requested Specifics: Other Emergency Center ([facility]) <Ankur Cuenca - Last Filed: 08/23/24 20:26> Clinical Impression: Pneumonia Disposition: OTHER INSTITUTION NOT DEFINED Condition: Stable Referrals: Ron Manrique MD [Primary Care Provider] - 1-2 days
[2024-08-22] MEDS: SODIUM CHLORIDE 0.9% 1,500 ML IV STA (13:52)
[2024-08-22 14:05] LABS: Anisocytosis Slight; Basophils % (A) 0 %; Eosinophils # (A) 0.1 k/uL (0-0.7); Eosinophils % (A) 1 %; HCT 35.2 % (34.0-46.0); HGB 11.7 gm/dL (11.4-16.0); Lymphocytes # (A) 1.3 k/uL (1.0-4.8); Lymphocytes % (A) 6 %; MCH 29.4 pg (25.0-35.0); MCHC 33.2 g/dL (31.0-37.0); MCV 88.5 fL (80.0-100.0); Mean Platelet Volume 7.7; Monocytes # (A) 0.9 k/uL (0-1.0); Monocytes % (A) 4 %; Neutrophils # (A) 18.7 k/uL (1.3-7.7); Neutrophils % (A) 87 %; Platelet Count 153 k/uL (150-450); RBC 3.98 m/uL (3.80-5.40); RDW 16.8 % (11.5-15.5); WBC 21.4 k/uL (3.8-10.6)
[2024-08-22 14:16] LABS: ALT 10 U/L (4-34); AST 23 U/L (14-36); African American GFR (CKD) >90 (>60 ml/min/1.73 sqM); Albumin 2.6 g/dL (3.5-5.0); Alkaline Phosphatase 166 U/L (38-126); Anion Gap 11 mmol/L; Blood Urea Nitrogen 11 mg/dL (7-17); Calcium 8.4 mg/dL (8.4-10.2); Carbon Dioxide 27 mmol/L (22-30); Chloride 89 mmol/L (98-107); Glucose 93 mg/dL (74-99); Magnesium 1.7 mg/dL (1.6-2.3); Non-African American GFR(CKD) >90 (>60 ml/min/1.73 sqM); Potassium 3.7 mmol/L (3.5-5.1); Sodium 127 mmol/L (137-145); Total Bilirubin 0.4 mg/dL (0.2-1.3); Total Protein 5.6 g/dL (6.3-8.2)
--- NOTE | 2024-08-22 14:16 | XR ---
EXAMINATION TYPE: XR chest 1V portable DATE OF EXAM: 08/22/2024 2:02 PM COMPARISON: PET/CT 05/26/2024, CT chest 02/12/2024 TECHNIQUE: XR chest 1V portable Portable AP radiograph of the chest. CLINICAL INDICATION:Female, 64 years old with history of tachycardia, hypotension; FINDINGS: Lungs/Pleura: No pneumothorax. Blunting of both costophrenic angles. Subtle scattered patchy opacitie s within the right lung. Pulmonary vascularity: Unremarkable. Heart/mediastinum: Cardiomediastinal silhouette is unremarkable. Atherosclerotic calcifications are seen in the aorta. Musculoskeletal: No acute osseous pathology. Calcification along the lateral aspect of the left humer al head suggesting calcific tendinitis. Other: Left PICC line with distal tip terminating in the low SVC. IMPRESSION: 1. Subtle scattered patchy opacities within the right lung concerning for pneumonia. 2. Development of small bilateral pleural effusions with left greater than right. [facility], , 08/22/2024 2:14 PM
[2024-08-22 14:18] LABS: INR 1.2 (<1.2); Partial Thromboplastin Time 24.8 sec (22.0-30.0); Prothrombin Time 13.2 sec (10.0-12.5)
--- NOTE | 2024-08-22 15:07 | CT ---
EXAMINATION TYPE: CT angio chest CT DLP: 224.30 mGycm, Automated exposure control for dose reduction was used. DATE OF EXAM: 08/22/2024 2:52 PM COMPARISON: Chest radiograph from same day. PET/CT 05/26/2024, 10/30/2023, 05/03/2021, CT chest 4 CLINICAL INDICATION:Female, 64 years old with history of positive D-dimer; SOB, elevated d-dimer and elevated heart rate TECHNIQUE/CONTRAST: CTA scan of the thorax is performed with IV Contrast, patient injected with 60ml mL of Isovue 370, pu lmonary embolism protocol. MIP images are created and reviewed. FINDINGS: Pulmonary Artery: There is no evidence for a filling defect within the pulmonary vasculature to sugge st acute pulmonary embolism. The pulmonary artery is of normal size. Lungs/Pleura: No pneumothorax. Trace bilateral pleural effusions. Mild to moderate centrilobular emph ysematous changes. Few stable scattered pulmonary nodules with new scattered pulmonary nodular opacit ies. Airway: Large airways are patent. Heart: Heart is within normal limits for size. Trace pericardial effusion. Mild enlargement of perica rdial lymph nodes. Vasculature: No evidence of aortic aneurysm. Left PICC line which terminates within the low SVC. Mild atherosclerotic calcification of the aorta and its branches. Mediastinum: Mild enlargement of bilateral mediastinal and right hilar adenopathy. Musculoskeletal: No acute osseous abnormalities. No aggressive osseous lesion. Soft Tissues: Diffuse anasarca. Lower neck: No significant findings. Upper Abdomen: There are 2 biliary ductal drainage identified. Pneumobilia demonstrated. Bilateral re nal cysts. Small hiatal hernia. Development of multiple ill-defined low attenuating lesions within th e liver measuring grossly up to 4 cm. Partial visualization of pigtail catheter within the gallbladde r fossa. Diffuse thickening of both adrenal glands which is new from prior. IMPRESSION: 1. No evidence of pulmonary embolism. 2. Several new scattered nodular opacities throughout the lungs concerning for atypical pneumonia how ever metastasis is not excluded. 3. Multiple new large ill-defined hypoattenuating lesions within the liver highly concerning for meta stasis. Further workup is recommended. 4. Marginal increase in size of mediastinal, right hilar, and pericardial adenopathy concerning for m etastasis versus reactive. 5. Trace bilateral pleural effusions. 6. COPD changes. [facility], , 08/22/2024 3:05 PM
[2024-08-22] MEDS: PIPERACILLIN-TAZOBACTAM 4.5 GM in SODIUM CHLORIDE 0.9% 100 ML IVPB STA (16:22)
[2024-08-22] MEDS: SODIUM CHLORIDE 0.9% 500 ML 500 ML IV STA (16:24)
[2024-08-22] MEDS: PIPERACILLIN-TAZOBACTAM 3.375 GM in SODIUM CHLORIDE 0.9% 100 ML IVPB STA (16:27)
[2024-08-22] MEDS: LACTATED RINGERS 1,000 ML IV ONE (17:11)
[2024-08-22] MEDS: PIPERACILLIN-TAZOBACTAM 3.375 GM in SODIUM CHLORIDE 0.9% 100 ML IVPB SCH (23:40)
[2024-08-22 23:53] VITALS: TEMP 98.1
[2024-08-23 09:36] LABS: Anisocytosis Slight; Basophils % (A) 0 %; Eosinophils # (A) 0.2 k/uL (0-0.7); Eosinophils % (A) 1 %; HCT 31.7 % (34.0-46.0); HGB 10.4 gm/dL (11.4-16.0); Hypochromasia Slight; Lymphocytes # (A) 1.1 k/uL (1.0-4.8); Lymphocytes % (A) 7 %; MCH 29.1 pg (25.0-35.0); MCHC 32.7 g/dL (31.0-37.0); MCV 88.9 fL (80.0-100.0); Mean Platelet Volume 7.4; Monocytes # (A) 0.7 k/uL (0-1.0); Monocytes % (A) 4 %; Neutrophils % (A) 86 %; Platelet Count 141 k/uL (150-450); RBC 3.57 m/uL (3.80-5.40); WBC 15.1 k/uL (3.8-10.6)
[2024-08-23 09:50] LABS: African American GFR (CKD) >90 (>60 ml/min/1.73 sqM); Anion Gap 5 mmol/L; Blood Urea Nitrogen 10 mg/dL (7-17); Calcium 7.9 mg/dL (8.4-10.2); Carbon Dioxide 31 mmol/L (22-30); Chloride 95 mmol/L (98-107); Glucose 104 mg/dL (74-99); Non-African American GFR(CKD) >90 (>60 ml/min/1.73 sqM); Potassium 3.3 mmol/L (3.5-5.1); Sodium 131 mmol/L (137-145)
[2024-08-23] MEDS ORDERED: ALBUTEROL NEBULIZED 2.5 MG/3 ML INHALATION PRN (12:18)
[2024-08-23] MEDS ORDERED: NON FORMULARY DRUG (Vitamin B Complex W/Vitamin C 1 TAB) PO SCH (12:30)
[2024-08-23] MEDS: LORATADINE 10 MG TAB PO SCH (13:12)
[2024-08-23] MEDS: TRIAMTERENE-HCTZ 37.5-25MG 1 EACH CAP PO SCH (13:13)
[2024-08-23] MEDS: ursodioL 300 MG CAP PO SCH (13:13)
[2024-08-23] MEDS: PANTOPRAZOLE 40 MG TABLET PO SCH (13:13)
[2024-08-23 13:29] VITALS: RESP 20
[2024-08-23] MEDS: CALCIUM CARB-VIT D 500 MG-5 MCG TAB PO SCH (14:15)
[2024-08-23] MEDS: buPROPion XL 150 MG TAB.ER.24H PO SCH (14:16)
[2024-08-23] MEDS: ONDANSETRON ODT 4 MG TAB PO PRN (15:28)
[2024-08-23] MEDS: MORPHINE SULFATE ER 30 MG TABLET PO SCH (15:32)
[2024-08-23] MEDS: HYDROcodone/APAP 7.5-325MG 1 EACH TAB PO PRN (15:36)
[2024-08-23 19:08] VITALS: BP 124/84; PULSE 74
[2024-08-23] MEDS ORDERED: SYMBICORT 160-4.5 MCG INHALER INHALATION SCH (20:00)
[2024-08-23] MEDS ORDERED: ATORVASTATIN 80 MG TAB PO SCH (21:00)
[2024-08-23] MEDS ORDERED: DULoxetine HCL 60 MG CAPSULE.DR PO SCH (21:00)
[2024-08-23] MEDS ORDERED: MONTELUKAST 10 MG TAB PO SCH (21:00)
== END 2024-08-23 19:08 | disposition other institution (70) ==
LOC: EC 12:44
DX: J18.9 Pneumonia, unspecified organism (principal); E87.1 Hypo-osmolality and hyponatremia; R00.0 Tachycardia, unspecified; Z87.891 Personal history of nicotine dependence
CPT/HCPCS: 99285; 96365; 96367; 96366 ×7; 96361 ×8; 36415 ×2; 93005; 85379; 80053; 80048; 83605; 83735; 84484; 85025 ×2; 85610; 85730; 87040; 84145; 71045; 71275; J2543 ×2; Q9967

== ENCOUNTER → 2024-11-15 | Outpatient (CLI) | payer MEDICARE ==
[2024-11-15 12:21] LABS: African American GFR (CKD) >90 (>60 ml/min/1.73 sqM); Blood Urea Nitrogen 22 mg/dL (7-17); Non-African American GFR(CKD) >90 (>60 ml/min/1.73 sqM)
--- NOTE | 2024-11-15 14:12 | CT ---
EXAMINATION TYPE: CT chest abdomen w con DATE OF EXAM: 11/15/2024 COMPARISON: CTA chest August 22, 2024 in the study CLINICAL INDICATION: Female, 64 years old with history of C34.90 MALIGNANT NEOPLASM OF UNSP PART OF U NSP BRO, Malignant neoplasm of lung, TECHNIQUE: CT scan of the thorax, abdomen and pelvis is performed with IV Contrast, patient injected with 100 ml mL of Isovue 300. CT DLP: 575 mGycm. Automated Exposure Control for Dose Reduction was Utilized. FINDINGS: LUNGS: Moderate underlying emphysematous change bilaterally is redemonstrated. Stable 4 mm spiculated nodule right upper lobe axial image 9. Additional scattered small nodules bilaterally are redemonstr ated. Areas of groundglass opacity and motion on prior study are resolved. There is 4 mm medial right lower lobe nodule-like image 33 likely stable. No definitive new or enlarging nodules. Mild anterior left basilar linear scarring. No pleural effusion or pneumothorax seen bilaterally HEART: Size within normal limits. Mild coronary artery calcification redemonstrated. MEDIASTINUM: Persistent enlarged 1.4 x 1.2 cm subcarinal lymph node on axial image 29. No pericardi al effusion is seen. LIVER/GB: Improvement in heterogeneous hypodense masses throughout the liver particularly left hepati c lobe. Persistent 4.2 cm hypodense mass in the right hepatic lobe axial image 52. Interval removal o f internal biliary stents with new moderate extra hepatic biliary dilatation up to 1.5 cm axial image 62. Abrupt cut off with double duct sign in the pancreatic head is present without definitive mass.. PANCREAS: Mild pancreatic ductal dilatation in the head up to 5 mm coronal images 34. SPLEEN: No significant abnormality is seen. ADRENALS: No significant abnormality is seen. KIDNEYS: There are several thin-walled cysts scattered throughout the bilateral kidneys redemonstrate d. BOWEL: No significant abnormality is seen. LYMPH NODES: No greater than 1cm abdominal lymph nodes are appreciated. OSSEOUS STRUCTURES: No significant abnormality is seen. OTHER: No significant additional abnormality is seen. IMPRESSION: 1. Moderate underlying emphysematous change redemonstrated. No new or enlarging pulmonary nodules or masses. Enlarged subcarinal lymph node redemonstrated. Hepatic metastatic disease redemonstrated but improved. There is however new biliary and pancreatic ductal dilatation with double duct sign. Ampull carlos mass or neoplasm cannot be excluded. Consider ERCP follow-up to further evaluate. [facility], , 11/15/2024 2:10 PM
== END | disposition home or self-care (01) ==
LOC: RADCTMAIN 11:20
PROVIDERS: ATTEND Internal Medicine Hematology & Oncology
DX: Z03.89 Encounter for observation for other suspected diseases and conditions ruled out (principal); C34.91 Malignant neoplasm of unspecified part of right bronchus or lung; J43.9 Emphysema, unspecified; K86.2 Cyst of pancreas
CPT/HCPCS: 82565; 84520; 71260; 74160; 36415; Q9967

== ENCOUNTER → 2024-12-01 | Outpatient (CLI) | payer MEDICARE ==
--- NOTE | 2024-12-04 09:03 | PE ---
EXAMINATION TYPE: PET CT fusion skull to thigh DATE OF EXAM: 12/01/2024 CLINICAL INDICATION:Female, 64 years old with history of Lung ca; TECHNIQUE: Following the intravenous administration of 10.60 mCi of F-18 FDG, whole body images are performed from the skull base to the midthigh. Images are reviewed on the computer in the coronal, axial, and sagittal planes. Reconstructed rotating images are created on independent workstation and reviewed on the computer. A non-contrast CT is performed in conjunction with the PET scan. Glucose level 89 mg/dL CT DLP: 217.65 mGycm, Automated exposure control for dose reduction was used. COMPARISON: CT 11/15/2024, 08/24/2024, 08/22/2024, 02/12/2024, PET/CT 05/26/2024, 10/30/2023, 05/03/2021, MRI : None FINDINGS: Mediastinal SUV mean is 1.6. Hepatic parenchyma SUV mean is 2.1. SKULL BASE AND NECK: No suspicious radiotracer activity. CHEST, MEDIASTINUM, AND HILAR REGION: No suspicious radiotracer activity. No suspicious FDG activity above background levels. Similar few scattered pulmonary nodules which are below the sensitivity for PET/CT. ABDOMEN AND PELVIS: Focal region of hyperattenuation with FDG activity in the central right hepatic lobe abutting the por ta hepatis. Demonstrates a maximum SUV of 8.7. Additional focal region of curvilinear uptake along the anterior inferior hepatic margin with a max S UV of 12.1. These regions are both new from prior PET/CT. MUSCULOSKELETAL STRUCTURES: No suspicious radiotracer activity. OTHER CT: Mild calcified plaque right greater than left involving the carotid bulbs. Atherosclerotic calcification of the aorta and its branches. Small coronary arterial calcifications. Multiple tiny ga llstones in gallbladder. Scattered bilateral pelvic phleboliths. Redemonstration of intrahepatic and extrahepatic biliary duct dilatation with pneumobilia now demonstrated. Gallbladder is not well-visua lized and may be surgically absent. Stable bilateral renal cortical cysts. Moderate centrilobular emp hysematous changes. IMPRESSION: 1. Focal regions of new FDG activity within the central right hepatic lobe abutting the jennifer hepati s and along the anterior inferior margin of the right hepatic lobe. Findings are concerning for progr ession of metastatic disease. 2. Redemonstration of intrahepatic and extrahepatic biliary ductal dilatation with pneumobilia now d emonstrated. [facility], , 12/04/2024 9:01 AM
== END | disposition home or self-care (01) ==
LOC: RADPETMAIN 15:34
PROVIDERS: ATTEND Family Medicine
DX: C34.80 Malignant neoplasm of overlapping sites of unspecified bronchus and lung (principal); K83.8 Other specified diseases of biliary tract
CPT/HCPCS: 78815; A9552

== ENCOUNTER 2025-02-24 13:42 | Emergency (ER) | payer MEDICARE ==
[2025-02-24 13:52] VITALS: TEMP 97.9
[2025-02-24 14:38] LABS: Basophils # (A) 0.04 10*3/uL (0.00-0.10); Basophils % (A) 0.4 %; Eosinophils # (A) 0.12 10*3/uL (0.04-0.35); Eosinophils % (A) 1.1 %; HCT 38.8 % (37.2-46.3); HGB 13.0 g/dL (12.0-15.0); Lymphocytes # (A) 2.42 10*3/uL (0.90-5.00); Lymphocytes % (A) 22.3 %; MCH 29.3 pg (27.0-32.0); MCHC 33.5 g/dL (32.0-37.0); MCV 87.6 fL (80.0-97.0); Monocytes # (A) 1.17 10*3/uL (0.20-1.00); Monocytes % (A) 10.8 %; Neutrophils # (A) 7.07 10*3/uL (1.80-7.70); Neutrophils % (A) 65.1 %; Platelet Count 315 10*3/uL (140-440); RBC 4.43 10*6/uL (4.10-5.20); RDW 21.0 % (11.5-14.5); WBC 10.85 10*3/uL (4.50-10.00)
[2025-02-24 14:54] LABS: ALT 72 U/L (4-34); AST 78 U/L (14-36); African American GFR (CKD) >90 (>60 ml/min/1.73 sqM); Albumin 3.7 g/dL (3.5-5.0); Alkaline Phosphatase 311 U/L (38-126); Anion Gap 12 mmol/L; Blood Urea Nitrogen 18 mg/dL (7-17); Calcium 9.3 mg/dL (8.4-10.2); Carbon Dioxide 21 mmol/L (22-30); Chloride 105 mmol/L (98-107); Glucose 104 mg/dL (74-99); Magnesium 1.8 mg/dL (1.6-2.3); Non-African American GFR(CKD) >90 (>60 ml/min/1.73 sqM); Potassium 4.6 mmol/L (3.5-5.1); Sodium 138 mmol/L (137-145); Total Protein 6.4 g/dL (6.3-8.2)
[2025-02-24 14:55] LABS: INR 1.0 (<1.2); Partial Thromboplastin Time 26.3 sec (22.0-30.0); Prothrombin Time 11.4 sec (10.0-12.5)
--- NOTE | 2025-02-24 14:56 | ED ---
Arrhythmia/Palpitations HPI - General Chief Complaint: Arrhythmia/Palpitations Stated Complaint: Elevated heart rate Time Seen by Provider: 02/24/25 13:43 Source: patient Mode of arrival: ambulatory Limitations: no limitations - History of Present Illness Initial Comments: 66-year-old female with COPD, fibromyalgia, GERD, hyperlipidemia, anxiety, depression, hypomagnesemia, hypokalemia here for palpitations. Patient reported that last night, she woke up in the middle of the night with palpitations with associated sweats. She was able to sleep through it but in the morning she noted that she had persistent palpitations with associated shortness of breath and fatigue. She denied chest pain, fever, chills, abdominal pain, extremity swelling. She had a prior episode a couple of months ago that lasted the day with the same symptoms. She has not been evaluated for the symptoms with her PCP. She recently had a cholecystectomy in June and was complicated with sepsis. She also has been taking potassium, magnesium and calcium supplements a s she was told that her electrolytes were low. She had recent prolonged travel in the past during the last week of January via car. - Related Data Home Medications Medication Instructions Recorded Confirmed Albuterol Sulfate [Proventil Hfa] 2 puff INHALATION RT-QID PRN 09/08/16 08/22/24 Montelukast [Singulair] 10 mg PO HS 09/08/16 08/22/24 Triamterene-Hctz 37.5-25Mg 1 cap PO DAILY 09/08/16 08/22/24 [Dyazide 37.5-25 Capsule] Morphine Sulfate [Morphine Sulfate 30 mg PO Q8H 10/06/18 08/22/24 ER] Cetirizine HCl [Zyrtec] 10 mg PO DAILY 11/05/23 08/22/24 DULoxetine HCL [Cymbalta] 60 mg PO HS 11/05/23 08/22/24 HYDROcodone/APAP 7.5-325MG [[place] 1 tab PO Q6H PRN 11/05/23 08/22/24 7.5-325] Calcium 600mg W/Vitamin D 1 tab PO DAILY 08/22/24 08/22/24 Fluticasone Propion/Salmeterol 1 puff INHALATION RT-BID 08/22/24 08/22/24 [Wixela 500-50 Inhub] Lansoprazole [Prevacid] 30 mg PO BID 08/22/24 08/22/24 Ondansetron Odt [Zofran Odt] 4 - 8 mg PO Q6H PRN 08/22/24 08/22/24 Piperacillin-Tazobactam [Zosyn] 4.5 gm IVPB Q6HR 08/22/24 08/22/24 Rosuvastatin Calcium [Crestor] 40 mg PO HS 08/22/24 08/22/24 Vitamin B Complex W/Vitamin C 1 tab PO DAILY 08/22/24 08/22/24 buPROPion HCL [Wellbutrin XL] 150 mg PO DAILY 08/22/24 08/22/24 ursodioL [Ursodiol] 300 mg PO BID 08/22/24 08/22/24 Allergies Allergy/AdvReac Type Severity Reaction Status Date / Time No Known Allergies Allergy Verified 02/24/25 13:52 Review of Systems ROS Statement: Those systems with pertinent positive or pertinent negative responses have been documented in the HPI. ROS Other: All systems not noted in ROS Statement are negative. 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 Vera is aware. Pt states she has been referred to Dr. Bolton and is unable to get in to see him until December2023.VERNA CARPAL TUNNEL, occasional edema, hx of hiatal hernia, IBS, CHRONIC SCIATICA, DDD, ABD HERNIA, Fibromyalsia, arthritis, Costochondritis, occasional edema to calves of legs. History of Any Multi-Drug Resistant Organisms: None Reported Past Surgical History: Adenoidectomy, Section, Tonsillectomy Additional Past Surgical History / Comment(s): LAPROSCOPY FOR OVARIAN CYST, EGD, bilat carpal tunnel surgery. Past Anesthesia/Blood Transfusion Reactions: Postoperative Nausea & Vomiting (PONV) Past Psychological History: Anxiety, Depression Smoking Status: Former smoker Past Alcohol Use History: None Reported Past Drug Use History: None Reported - Past Family History Mother Family Medical History: Cancer Additional Family Medical History / Comment(s): KIDNEY Father Family Medical History: Cancer Additional Family Medical History / Comment(s): HODGKINS General Exam - General Exam Comments Initial Comments: Physical examination: Vital signs reviewed General: non toxic, no distress, appears at stated age Head: atraumatic, normocephalic, symmetric Mouth: no lip lesion, mucus membranes moist Cardiovascular: S1S2 tachycardic, no murmur Lungs: CTA bilateral, no rhonchi, no rales, no accessory muscle use Abdominal: soft, nondistended, nontender to palpation, no guarding Ext: muscle strength 5 out of 5 in all 4 extremities grossly, no gross muscle atrophy, no contractures, positive dorsalis pedis pulse bilateral, no edema Neuro: no gross focal neuro deficits Psych: Alert and oriented x3, appropriate affect and mood Limitations: no limitations Course Vital Signs 02/24/25 02/24/25 02/24/25 13:49 14:30 17:24 Temperature 97.9 F Pulse Rate 121 H 121 H 120 H Respiratory 18 19 18 Rate Blood Pressure 113/77 118/69 O2 Sat by Pulse 100 98 Oximetry 02/24/25 17:30 Temperature Pulse Rate 74 Respiratory 18 Rate Blood Pressure 133/76 O2 Sat by Pulse 98 Oximetry EKG Findings - EKG Comments: EKG Findings:: Sinus tachycardia with a rate of 120 bpm, normal axis, P waves difficult to distinguish, QRS 164 MS, QTc 366 MS, no ST-T changes Medical Decision Making - Medical Decision Making Was pt. sent in by a medical professional or institution (, PA, LPN MEDICAL ASSISTANT, urgent care, hospital, or [facility]...) When possible be specific @ -No Did you speak to anyone other than the patient for history (EMS, parent, family, police, friend...)? What history was obtained from this source @ - at bedside Did you review nursing and triage notes (agree or disagree)? Why? @ -I reviewed and agree with nursing and triage notes Were old charts reviewed (outside hosp., previous admission, EMS record, old EKG, old radiological studies, urgent care reports/EKG's, [facility] records)? Report findings @ -Old charts were reviewed. Patient was here in August 2024. Noted to have elevated troponins and D-dimer. CT angiography negative at the time Differential Diagnosis? @ -Differential palpitations: Valvular disease, hypertrophic cardiomyopathy, pulmonary embolism, tamponade, MD, hypovolemia, hemorrhage, dissection, anemia, intracranial hemorrhage, seizure, hypoglycemia, carbon monoxide poisoning, this is not meant to be an all-inclusive list. EKG interpreted by me (3pts min.). @ -As above X-rays interpreted by me (1pt min.). @ -None done CT interpreted by me (1pt min.). @ -None done U/S interpreted by me (1pt. min.). @ -None done What testing was considered but not performed or refused? (CT, X-rays, U/S, labs)? Why? @ -None What meds were considered but not given or refused? Why? @ -None Did you discuss the management of the patient with other professionals (professionals i.e. , PA, LPN MEDICAL ASSISTANT, lab, RT, psych nurse, social science manager, rattlesnake farmer, teacher, senior administrative services officer, trimming caser)? Give summary @ -Dr. Coffey, supervising physician Was smoking cessation discussed for >3mins.? @ -No Was critical care preformed (if so, how long)? @ -Yes. 30 minutes. Were there social determinants of health that impacted care today? How? (Homeles sness, low income, unemployed, alcoholism, drug addiction, transportation, low edu. Level, literacy, decrease access to med. care, fpc, rehab)? @ -No Was there de-escalation of care discussed even if they declined (Discuss DNR or withdrawal of care, Hospice)? DNR status @ -No What co-morbidities impacted this encounter? (DM, HTN, Smoking, COPD, CAD, Cancer, CVA, ARF, Chemo, Hep., AIDS, mental health diagnosis, sleep apnea, morbid obesity)? @ -None Was patient admitted / discharged? Hospital course, mention meds given and route, prescriptions, significant lab abnormalities, going to OR and other pertinent info. @ -Discharge. Placed on cardiac telemetry. EKG, mag, troponin and CMP ordered. Spoke with cardiology. Advised that patient is in SVT and recommended adenosine push. Patient returned to sinus rhythm rate of 83, P waves visible at this time VA interval 172 MS, QTc 393 MS. Patient's symptoms improved. She is cleared for discharge and advised to follow-up closely with cardiology. Undiagnosed new problem with uncertain prognosis? @ -No Drug Therapy requiring intensive monitoring for toxicity (Heparin, Nitro, Insulin, Cardizem)? @ -No Were any procedures done? @ -No Diagnosis/symptom? @ -[default] Acute, or Chronic, or Acute on Chronic? @ -Acute Uncomplicated (without systemic symptoms) or Complicated (systemic symptoms)? @ -Uncomplicated Side effects of treatment? @ -No Exacerbation, Progression, or Severe Exacerbation? @ -No Poses a threat to life or bodily function? How? (Chest pain, USA, MD, pneumonia, PE, COPD, DKA, ARF, appy, cholecystitis, CVA, Diverticulitis, Homicidal, Suicidal, threat to staff... and all critical care pts) @ -Yes, possible hemodynamic instability - Lab Data Result diagrams: 02/24/25 14:30 02/24/25 14:30 Lab Results 02/24/25 02/24/25 02/24/25 Range/Units 14:30 14:30 14:30 WBC 10.85 H (4.50-10.00) 10*3/uL RBC 4.43 (4.10-5.20) 10*6/uL Hgb 13.0 (12.0-15.0) g/dL Hct 38.8 (37.2-46.3) % MCV 87.6 (80.0-97.0) fL MCH 29.3 (27.0-32.0) pg MCHC 33.5 (32.0-37.0) g/dL Plt Count 315 (140-440) 10*3/uL MPV 8.8 L (9.5-12.2) fL Immature Gran % (Auto) 0.3 % Neutrophils % 65.1 % Lymphocytes % 22.3 % Monocytes % 10.8 % Eosinophils % 1.1 % Basophils % 0.4 % Immature Gran # 0.03 (0.00-0.04) 10*3/uL Neutrophils # 7.07 (1.80-7.70) 10*3/uL Lymphocytes # 2.42 (0.90-5.00) 10*3/uL Monocytes # 1.17 H (0.20-1.00) 10*3/uL Eosinophils # 0.12 (0.04-0.35) 10*3/uL Basophils # 0.04 (0.00-0.10) 10*3/uL PT 11.4 (10.0-12.5) sec INR 1.0 (<1.2) APTT 26.3 (22.0-30.0) sec D-Dimer 0.33 (<0.60) mg/L FEU Sodium 138 (137-145) mmol/L Potassium 4.6 (3.5-5.1) mmol/L Chloride 105 (98-107) mmol/L Carbon Dioxide 21 L (22-30) mmol/L Anion Gap 12 mmol/L BUN 18 H (7-17) mg/dL Creatinine 0.62 (0.52-1.04) mg/dL Est GFR (CKD-EPI)AfAm >90 (>60 ml/min/1.73 sqM) Est GFR (CKD-EPI)NonAf >90 (>60 ml/min/1.73 sqM) Glucose 104 H (74-99) mg/dL Calcium 9.3 (8.4-10.2) mg/dL Magnesium 1.8 (1.6-2.3) mg/dL Total Bilirubin 0.4 (0.2-1.3) mg/dL AST 78 H (14-36) U/L ALT 72 H (4-34) U/L Alkaline Phosphatase 311 H (38-126) U/L Troponin I (0.000-0.034) ng/mL Total Protein 6.4 (6.3-8.2) g/dL Albumin 3.7 (3.5-5.0) g/dL /18/ Range/Units 14:30 WBC (4.50-10.00) 10*3/uL RBC (4.10-5.20) 10*6/uL Hgb (12.0-15.0) g/dL Hct (37.2-46.3) % MCV (80.0-97.0) fL MCH (27.0-32.0) pg MCHC (32.0-37.0) g/dL Plt Count (140-440) 10*3/uL MPV (9.5-12.2) fL Immature Gran % (Auto) % Neutrophils % % Lymphocytes % % Monocytes % % Eosinophils % % Basophils % % Immature Gran # (0.00-0.04) 10*3/uL Neutrophils # (1.80-7.70) 10*3/uL Lymphocytes # (0.90-5.00) 10*3/uL Monocytes # (0.20-1.00) 10*3/uL Eosinophils # (0.04-0.35) 10*3/uL Basophils # (0.00-0.10) 10*3/uL PT (10.0-12.5) sec INR (<1.2) APTT (22.0-30.0) sec D-Dimer (<0.60) mg/L FEU Sodium (137-145) mmol/L Potassium (3.5-5.1) mmol/L Chloride (98-107) mmol/L Carbon Dioxide (22-30) mmol/L Anion Gap mmol/L BUN (7-17) mg/dL Creatinine (0.52-1.04) mg/dL Est GFR (CKD-EPI)AfAm (>60 ml/min/1.73 sqM) Est GFR (CKD-EPI)NonAf (>60 ml/min/1.73 sqM) Glucose (74-99) mg/dL Calcium (8.4-10.2) mg/dL Magnesium (1.6-2.3) mg/dL Total Bilirubin (0.2-1.3) mg/dL AST (14-36) U/L ALT (4-34) U/L Alkaline Phosphatase (38-126) U/L Troponin I <0.012 (0.000-0.034) ng/mL Total Protein (6.3-8.2) g/dL Albumin (3.5-5.0) g/dL Disposition Clinical Impression: Supraventricular tachycardia Disposition: HOME SELF-CARE Condition: Good Additional Instructions: Advised to follow-up closely with cardiology. If she experienced palpitations once again, she may do carotid massage placed her face in cold water. Every disease is a spectrum and a small chance still exists that a serious condition could develop, for this reason, please monitor yourself closely for new, changing or worsening symptoms, symptoms that persist beyond another 72 hours,difficulty in breathing, lower extremity swelling, chest pain, inability to tolerate/keep down fluids or your medications, inability to follow up with outpatient providers as instructed and should you experience these symptoms or should you have any further concerns for your wellbeing please return to the ED or call 911 immediately. PLEASE call your primary care physician as soon as possible to arrange / discuss plan for followup appointment. Appointment in the next 1-3 days is strongly encouraged if possible. PLEASE let us know here before you leave if there is anything further we can do to be of any assistance. Take care and feel Better! Is patient prescribed a controlled substance at d/c from ED?: No Referrals: Ron Manrique MD [Primary Care Provider] - 1-2 days Mark Bolton MD [STAFF PHYSICIAN] - 1-2 days Time of Disposition: 17:37
[2025-02-24] MEDS: ADENOSINE 3 MG/ML 2 ML VIAL IVP STA (17:25)
[2025-02-24 17:30] VITALS: RESP 18
[2025-02-24 17:31] VITALS: BP 133/76; PULSE 74
== END 2025-02-24 18:14 | disposition home or self-care (01) ==
LOC: EC 13:42
DX: I47.10 Supraventricular tachycardia, unspecified (principal); Z87.891 Personal history of nicotine dependence
CPT/HCPCS: 36415; 93005; 85379; 80053; 83735; 84484; 85025; 85610; 85730; 99291; 96374; J0153

== ENCOUNTER → 2025-03-09 | Outpatient (CLI) | payer MEDICARE ==
--- NOTE | 2025-03-10 16:36 | PE ---
EXAMINATION TYPE: PET CT fusion skull to thigh DATE OF EXAM: 03/09/2025 CLINICAL INDICATION:Female, 64 years old with history of C34.2 LUNG CANCER; TECHNIQUE: Following the intravenous administration of 11.85 mCi of F-18 FDG, whole body images are performed from the skull base to the midthigh. Images are reviewed on the computer in the coronal, axial, and sagittal planes. Reconstructed rotating images are created on independent workstation and reviewed on the computer. A non-contrast CT is performed in conjunction with the PET scan. Glucose level 103 mg/dL CT DLP: 374.6 mGycm, Automated exposure control for dose reduction was used. COMPARISON: CT 11/15/2024, 08/24/2024, 08/22/2024, 02/12/2024, PET/CT 12/01/2024, 05/26/2024, 10/30/2023, 04/11, MRI: None FINDINGS: Mediastinal SUV mean is 1.8. Hepatic parenchyma SUV mean is 2.4. SKULL BASE AND NECK: No suspicious radiotracer activity. CHEST, MEDIASTINUM, AND HILAR REGION: No suspicious FDG activity above background levels. Similar few scattered pulmonary nodules which are below the sensitivity for PET/CT. ABDOMEN AND PELVIS: Resolution of focal central right hepatic lobe FDG activity abutting the jennifer hepatis. There is cont inued FDG focal region of uptake along the inferior surface of the anterior right hepatic lobe. There is hyperdensity within this region. Demonstrates a max SUV of 8.7, previously 12.1. MUSCULOSKELETAL STRUCTURES: No suspicious radiotracer activity. OTHER CT: Mild calcified plaque with right greater than left involving the carotid bulbs. Atheroscler otic calcification of the aorta and its branches. Small coronary arterial calcifications. Multiple ti ny gallstones in gallbladder. Scattered bilateral pelvic phleboliths. Improvement in previously seen intrahepatic biliary duct dilatation and pneumobilia. There is continued extrahepatic biliary duct di latation with the common bile duct measuring up to 1.6 cm to the pancreatic head. Gallbladder is not well-visualized and may be surgically absent. Stable bilateral renal cortical cysts. Moderate centril obular emphysematous changes. Small periumbilical hernia containing nonobstructing portion of small b owel. The defect measures 1 cm in diameter. IMPRESSION: 1. Resolution of focal region of FDG activity within the central right hepatic lobe near the jennifer h epatis. There is continued focal FDG activity along the inferior surface of the anterior right hepati c lobe at the gallbladder fossa. Demonstrates mildly decreased but intense FDG activity from prior ex am. No other new suspicious regions of FDG activity. Overall positive response to therapy with residu al disease. 2. Improvement in previously demonstrated intrahepatic biliary ductal dilatation and pneumobilia wit h continued extra hepatic biliary duct dilatation. Correlation with biliary levels is recommended. [facility], , 03/10/2025 4:34 PM
== END | disposition home or self-care (01) ==
LOC: RADPETMAIN 09:53
PROVIDERS: ATTEND Internal Medicine Hematology & Oncology
DX: C34.2 Malignant neoplasm of middle lobe, bronchus or lung (principal); K83.8 Other specified diseases of biliary tract
CPT/HCPCS: 78815; A9552